=== PATIENT | female | born 1970 | race Caucasian/White ===

== ENCOUNTER 2020-08-06 11:53 | Observation (INO) ==
[2020-08-06] MEDS ORDERED: *HR* LORazepam 2 MG/ML VIAL IVP ONE (12:19)
[2020-08-06] MEDS ORDERED: *HR* LORazepam 2 MG/ML VIAL ONE (12:20)
[2020-08-06] MEDS ORDERED: *HR* LORazepam 2 MG/ML VIAL IVP STA (12:40)
[2020-08-06 13:13] LABS: BUN/Creatinine Ratio 20 (6-26); Blood Urea Nitrogen 18 mg/dL (6-20); Calcium 9.8 mg/dL (8.6-10.3); Carbon Dioxide 25 mEq/L (23-29); Chloride 105 mEq/L (98-107); Glucose 90 mg/dL (70-105); Osmolality,Calculated 285 (280-300); Potassium 4.3 mEq/L (3.5-5.1); Sodium 137 mEq/L (136-145); eGFR For African Americans > 60 (> 60); eGFR For Non-African Americans > 60 (> 60)
[2020-08-06 13:51] LABS: Hematocrit 36.1 % (35.3-44.9); Hemoglobin 11.9 g/dL (11.5-15.4); Mean Corpuscular Hemoglobin 31.2 pg (28.0-33.3); Mean Corpuscular Volume 94.5 fL (83.0-100.0); Mean Platelet Volume 8.9 fL (9.4-12.4); Platelet Count 257 K/mcL (140-400); Red Blood Count 3.82 M/mcL (3.82-4.97); Red Cell Distribution Width 13.5 % (11.5-14.5); White Blood Count 11.9 K/mcL (4.3-11.1)
[2020-08-06] MEDS ORDERED: Valproic Acid INJ 1,000 MG in 0.9 % Sodium Chloride 100 ML IVPB STA (13:51)
[2020-08-06] MEDS ORDERED: Ondansetron ODT 4 MG TAB.RAPDIS SL PRN (15:05)
[2020-08-06] MEDS ORDERED: Naloxone 0.4 MG/ML INJ IVP PRN (15:05)
[2020-08-06] MEDS: Valproic Acid 250 MG CAPSULE PO SCH (16:36)
[2020-08-06] MEDS: Ringers Solution, Lactated 1,000 ML IVC SCH (16:37)
[2020-08-06] MEDS: Ibuprofen 600 MG TABLET PO PRN (20:44)
[2020-08-07] MEDS: Ringers Solution, Lactated 1,000 ML IVC SCH (04:49)
[2020-08-07 05:40] LABS: Hematocrit 35.3 % (35.3-44.9); Hemoglobin 11.6 g/dL (11.5-15.4); Mean Corpuscular HGB Conc 32.9 g/dL (31.6-35.5); Mean Corpuscular Hemoglobin 31.4 pg (28.0-33.3); Mean Corpuscular Volume 95.4 fL (83.0-100.0); Platelet Count 261 K/mcL (140-400); Red Cell Distribution Width 13.5 % (11.5-14.5); White Blood Count 6.6 K/mcL (4.3-11.1)
[2020-08-07 06:02] LABS: BUN/Creatinine Ratio 26 (6-26); Blood Urea Nitrogen 23 mg/dL (6-20); Calcium 9.3 mg/dL (8.6-10.3); Carbon Dioxide 24 mEq/L (23-29); Chloride 107 mEq/L (98-107); Glucose 75 mg/dL (70-105); Osmolality,Calculated 286 (280-300); Potassium 4.4 mEq/L (3.5-5.1); Sodium 137 mEq/L (136-145); eGFR For African Americans > 60 (> 60); eGFR For Non-African Americans > 60 (> 60)
[2020-08-07] MEDS ORDERED: *HR* Enoxaparin 40 MG/0.4 ML SYRINGE SQ SCH (07:00)
[2020-08-07] MEDS: Valproic Acid 250 MG CAPSULE PO SCH (07:55)
[2020-08-07] MEDS: Ibuprofen 600 MG TABLET PO PRN (07:55)
[2020-08-07 10:03] VITALS: BP 96/54
== END 2020-08-07 11:52 | disposition home or self-care (01) ==
LOC: EMEROOARM 11:53 → 3BNU 11:53 → SUATTDRO 14:48 → 3BNU 15:24
PROVIDERS: ADMIT Internal Medicine; ATTEND Registered Nurse